=== PATIENT | female | born 1945 | race Caucasian/White ===

== ENCOUNTER → 2022-05-03 | Outpatient (CLI) | payer MEDICARE | END | disposition home or self-care (01) | LOC: SHCH 08:33 | PROVIDERS: ATTEND Internal Medicine | DX: I11.9 Hypertensive heart disease without heart failure (principal); E78.5 Hyperlipidemia, unspecified; Z95.3 Presence of xenogenic heart valve | CPT/HCPCS: 93306 ==

== ENCOUNTER → 2022-07-05 | Outpatient (CLI) | payer MEDICARE | END | disposition home or self-care (01) | LOC: SHCH 08:17 | PROVIDERS: ATTEND Internal Medicine | DX: I10 Essential (primary) hypertension (principal) | CPT/HCPCS: 93306 ==

== ENCOUNTER → 2023-06-26 | Outpatient (CLI) | payer MEDICARE | END | disposition home or self-care (01) | LOC: SHCH 12:22 | PROVIDERS: ATTEND Internal Medicine | DX: I34.81 Nonrheumatic mitral (valve) annulus calcification (principal); I65.23 Occlusion and stenosis of bilateral carotid arteries; E78.5 Hyperlipidemia, unspecified; Z95.2 Presence of prosthetic heart valve | CPT/HCPCS: 93306; 93880 ==

== ENCOUNTER → 2024-07-01 | Outpatient (CLI) | payer MEDICARE ==
--- NOTE | 2024-07-02 17:07 | HMCSR ---
APPROVED REPORT Laterality: Bilateral Indications Occlusion and Stenosis of carotids Doppler Spectral Velocity Analysis PSV / EDVPSV / EDV ECA (R) 253 / cm/sECA (L) 179 / cm/s dICA (R) 233 / 34 cm/sdICA (L) 112 / 27 cm/s Kenney (R) 237 / 38 cm/smICA (L) 147 / 25 cm/s pICA (R) 211 / 30 cm/spICA (L) 138 / 25 cm/s dCCA (R) 63 / 13 cm/sdCCA (L) 65 / 12 cm/s mCCA (R) 80 / 12 cm/smCCA (L) 74 / 12 cm/s pCCA (R) 105 / 13 cm/spCCA (L) 95 / 15 cm/s Vert (R) 90 / cm/sVert (L) 122 / cm/s Subl. (R) 513 / cm/sSubl. 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 BREANNE highest velocity 237 cm/s suggestive of >70% stenosis LICA highest velocity 147 cm/s suggestive of 50-69% stenosis RT. vertebral artery appear antegrade. LT. vertebral artery shows Bidirectional flow. Bilateral elevated velocities in the ECA's. Stenosis seen in the bilateral subclavian arteries, RT. subc greater than LT. subc. 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 BREANNE highest velocity 237 cm/s suggestive of >70% stenosis LICA highest velocity 147 cm/s suggestive of 50-69% stenosis RT. vertebral artery appear antegrade. LT. vertebral artery shows Bidirectional flow. Bilateral elevated velocities in the ECA's. Stenosis seen in the bilateral subclavian arteries, RT. subc greater than LT. subc. 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 BREANNE highest velocity 237 cm/s suggestive of >70% stenosis LICA highest velocity 147 cm/s suggestive of 50-69% stenosis RT. vertebral artery appear antegrade. LT. vertebral artery shows Bidirectional flow. Bilateral elevated velocities in the ECA's. Stenosis seen in the bilateral subclavian arteries, RT. subc greater than LT. subc.
--- NOTE | 2024-07-03 09:23 | HMCSR ---
APPROVED REPORT EXAM: Two-dimensional and M-mode echocardiogram with Doppler and color Doppler. 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 2D Dimensions RVDd3.8 cmLVEF(%)50.4 (>50%)LVED Vol(simp.)115.0 mL IVSd1.5 (0.7-1.1cm)FS(%)26 %LVES Vol(simp.)57.0 mL LVDd4.7 (3.8-5.6cm)IVC diam1.5 cmLVEF(%, simp.)51 % PWd1.5 (0.7-1.1cm)LA ESV INDEX (BP)57.99 mL/m2 LVDs3.5 (2.5-4.0cm) Aortic Valve AoV Vmax3.3 m/Wilian Peak GR44.7 mmHgLVOT Vmax1.2 m/s AoV VTI0.8 mAo Mean GR22.9 mmHgLVOT VTI0.30 m Al P1/5U6843 ms Mitral Valve MV E Sqwg893.8 cm/sDECEL Ftaj571 msMV Peak GR9 mmHg MV A Elen875.9 cm/sMV Mean GR2 mmHg E/A ratio0.9 MR Max PG118 mmHg TDI E/E' Pkaxoi28.9E/E' Yurpira14.9 Pulmonary Valve PV Vmax0.8 m/sPV VTI0.17 mPV Mean GR1 mmHg PV Peak GR2.4 mmHgPI End Abena. Hardik 0.9 cm/s Tricuspid Valve TR Vmax2.7 m/sRAP (EST) 3 [id number] mmHg TR Peak GR30.1 mmHg Left Ventricle Left ventricular cavity size is normal. There is moderate concentric left ventricular hypertrophy. LV EF is 50-55%. Grade 2 diastolic dysfunction. Right Ventricle The right ventricle is normal size. The right ventricular systolic function is normal. Atria The left atrium is severely dilated. The right atrium size is normal. Aortic Valve TAVR valve ([employer]tronic Evolute) in place Mild aortic regurgitation. AV Dimensionless Index is 0.62 Ca lculated aortic valve maximum pressure gradient of 44.7 mmHg and mean pressure gradient of 22.9 mmHg. Mitral Valve Mitral annular calcification is moderate to severe. Mitral valve leaflets are sclerotic. Mitral regur gitation is trace to mild. Calculated mitral valve maximum pressure gradient of 9 mmHg and mean press ure gradient of 2 mmHg. Tricuspid Valve The tricuspid valve leaflets appear normal. There is trace to mild tricuspid regurgitation. Right rebecca tricular systolic pressure is estimated at 30-40 mmHg. Pulmonic Valve Pulmonic valve is not well visualized. There is trace pulmonic valvular regurgitation. Great Vessels The aortic root appears normal in size. The IVC is normal in size and collapses >50% with inspiration . Pericardium No pericardial effusion. Other Information Quality : GoodRhythm : NSR Conclusion LVEF is 50-55%. There is moderate concentric left ventricular hypertrophy. Grade 2 diastolic dysfunction. The left atrium is severely dilated. TAVR valve (Medtronic Evolute) in place. Mean pressure gradient of 22.9 mmHg. Mild aortic regurgitation. Mitral annular calcification is moderate to severe. Mitral regurgitation is trace to mild.
== END | disposition home or self-care (01) ==
LOC: SHCH 08:42
PROVIDERS: ATTEND Internal Medicine
DX: I08.3 Combined rheumatic disorders of mitral, aortic and tricuspid valves (principal); I65.23 Occlusion and stenosis of bilateral carotid arteries; Z95.2 Presence of prosthetic heart valve
CPT/HCPCS: 93306; 93880

== ENCOUNTER → 2024-08-05 | Outpatient (CLI) | payer MEDICARE ==
[~2024-08-05] MED LIST: IOHEXOL-350 75 ML VIAL IV ONE
--- NOTE | 2024-08-05 12:45 | HMCIMG ---
Exam Type: CT ANGIO HEAD AND NECK Clinical Information: Disorder of arteries and arterioles, unspecified Comparison: None CT Dose Index (CTDI): 5.06 mGy Dose Length Product (DLP): 200.8 total mGy PROTOCOL: Examination is done at 5 millimeter multiple axial slices after IV contrast administration, 100 cc [id number] IV with arterial dynamic scanning. Examination is photographed in the axial and coronal planes. In addition, surface-rendered three-dimensional reconstructions of the [place] are performed. No complications occurred after contrast administration. Findings: The vessels of the [place] are patent. There is no aneurysm. There is no arteriovenous malformation. There are no occlusions. No tumor blush is identified. The carotid system is preserved bilaterally without significant atheromatous disease. There is no aneurysm. There is no occlusion. There is no dissection. The examination of the cervical spine shows no fractures, dislocations, or significant abnormalities. The examination on the neck is unremarkable otherwise. No lymphadenopathy seen. There are no masses. There are no fluid collections. The fat planes are preserved. The parotid glands are intact. Impression: Normal exam of the brain with contrast and CT-Angiogram of the [place]. Normal neck exam. No carotid occlusions.
== END | disposition home or self-care (01) ==
LOC: RAH 10:10
PROVIDERS: ATTEND Internal Medicine
DX: I77.9 Disorder of arteries and arterioles, unspecified (principal)
CPT/HCPCS: 70496; 70498; Q9967